=== PATIENT | male | born 1935 | race Caucasian/White ===

== ENCOUNTER 2017-05-12 11:56 | Emergency (ER) | payer MEDICARE ==
[~2017-05-12] VITALS: Ht 167.6 cm; Wt 97.7 kg
[~2017-05-12 11:56] MED LIST: ASPIRIN 32325 MG/TAB PO; CELEXA 20MG20 MG/TAB PO; FISH OIL1000 MG PO; IMDUR 30MG30 MG/TAB PO; LANOXIN0.25 MG PO; LOPRESSOR50 MG PO; PLAVIX 75MG TAB75 MG PO; PRILOSEC 20MG20 MG PO; PROTONIX 40MG T40 MG PO; VITAMIN D1000 IU PO; VYTORIN 10 MG-81 TAB PO
[2017-05-12 11:58] VITALS: TEMP 97.8
[2017-05-12] MEDS ORDERED: ZETIA 10MG TAB10 MG PO (12:03)
[2017-05-12] MEDS ORDERED: LIPITOR 80MG80 MG PO (12:03)
[2017-05-12] MEDS ORDERED: NORCO 325 MG-51 TAB PO (12:27)
[2017-05-12 13:17] VITALS: BP 118/72; PULSE 75
== END 2017-05-12 13:25 | disposition home or self-care (01) ==
LOC: COL.ER 11:56
DX: M54.5 Low back pain (principal); I10 Essential (primary) hypertension; I25.10 Atherosclerotic heart disease of native coronary artery without angina pectoris; E78.5 Hyperlipidemia, unspecified; Z95.1 Presence of aortocoronary bypass graft; Z95.5 Presence of coronary angioplasty implant and graft; Z79.82 Long term (current) use of aspirin; Z79.02 Long term (current) use of antithrombotics/antiplatelets
CPT/HCPCS: J2270; J2550

== ENCOUNTER → 2018-08-16 | Outpatient (CLI) | payer MEDICARE ==
[~2018-08-16] MED LIST changes: +LIPITOR 80MG80 MG PO; +NORCO 325 MG-51 TAB PO; +ZETIA 10MG TAB10 MG PO
== END ==
LOC: COL.RAD 13:26
DX: I71.9 Aortic aneurysm of unspecified site, without rupture (principal); J92.9 Pleural plaque without asbestos; R16.0 Hepatomegaly, not elsewhere classified

== ENCOUNTER → 2018-08-21 | Outpatient (CLI) | payer MEDICARE | LOC: COL.RAD 07:01 | DX: I71.4 Abdominal aortic aneurysm, without rupture (principal); J92.9 Pleural plaque without asbestos; R16.0 Hepatomegaly, not elsewhere classified | CPT/HCPCS: Q9967 ==

== ENCOUNTER → 2018-11-17 | Outpatient (CLI) | payer MEDICARE | LOC: COL.RAD 10:04 | DX: K63.89 Other specified diseases of intestine (principal); D64.89 Other specified anemias; N32.1 Vesicointestinal fistula; K76.9 Liver disease, unspecified | CPT/HCPCS: Q9967 ==

== ENCOUNTER 2018-11-24 07:00 | Inpatient (IN) | payer MEDICARE ==
[~2018-11-24] VITALS: Ht 167.6 cm; Wt 82.7 kg
[~2018-11-24 07:00] MED LIST changes: +FLAGYL500 MG PO; +LEVAQUIN 750MG750 M1 PO; +LOPRESSOR 550 MG/TAB PO; -LOPRESSOR50 MG PO
[2018-11-24 07:52] LABS: BASO % 0.4 % (0.0-2.0); EOS # 0.2 (0.0-0.7); EOS % 2.8 % (0-4.0); GRAN # 5.5 (1.4-6.5); GRAN % 70.7 % (42.2-75.2); HEMOGLOBIN 11.3 g/dl (13.5-18.0); LYMPH # 1.6 (1.2-3.4); LYMPH % 20.3 % (20.0-51.0); MEAN CELL VOLUME 89 fl (80.0-100.0); MEAN CORPUSCULAR HEMOGLOBIN 29 pg (27.0-31.0); MEAN CORPUSCULAR HGB CONC 33 g/dl (33.0-37.0); MEAN PLATELET VOLUME 9.8 fl (7.4-10.4); MONO # 0.4 (0.1-0.6); MONO % 5.4 % (1.7-9.3); PLATELET COUNT 287 K/mm3 (130-400); RED BLOOD COUNT 3.86 M/mm3 (4.20-5.60)
[2018-11-24 07:57] LABS: HEMATOCRIT 34.3 % (42.0-52.0)
[2018-11-24 07:58] LABS: INR 1.2 (0.8-3.0); PROTHROMBIN TIME 14.6 SECONDS (9.7-12.8)
[2018-11-24 08:05] LABS: ALANINE AMINOTRANSFERASE < 6 U/L (21-72); ALBUMIN 3.2 gm/dL (3.5-5.0); ALKALINE PHOSPHATASE 125 U/L (50-136); ANION GAP 12 mmol/L (7-16); AST,SGOT 24 U/L (15-37); BILIRUBIN,TOTAL 0.6 mg/dL (0.0-1.0); BLOOD UREA NITROGEN 10 mg/dL (9-20); C-REACTIVE PROTEIN 3.2 mg/dL (0.0-0.9); CALCIUM 8.7 mg/dL (8.4-10.2); CARBON DIOXIDE 24 mmol/L (22-30); CHLORIDE 107 mmol/L (98-107); CREATININE, serum 0.84 (0.66-1.25); GLUCOSE 123 mg/dL (74-106); LIPASE 102 U/L (23-300); SODIUM 142 mmol/L (137-145); TOTAL PROTEIN 7.8 gm/dL (6.4-8.2)
[2018-11-24 08:16] LABS: TROPONIN-I < 0.012 ng/mL (0.000-0.035)
[2018-11-24 09:38] LABS: COLLECTION METHOD CLEAN CATCH
[2018-11-24 09:46] LABS: PH 6 (5-8); SQUAMOUS EPITHELIAL None Seen /hpf; URINE APPEARANCE Hazy; URINE BACTERIA None Seen /hpf; URINE BILIRUBIN Negative (NEGATIVE); URINE BLOOD 2+ (NEGATIVE); URINE COLOR Yellow; URINE GLUCOSE Negative (NEGATIVE); URINE KETONE Trace (NEGATIVE); URINE LEUKOCYTE ESTERASE 3+ (NEGATIVE); URINE NITRATE Negative (NEGATIVE); URINE PROTEIN(semi-quant) 1+ (NEGATIVE); URINE UROBILINOGEN Negative (NEGATIVE)
[2018-11-24 12:30] VITALS: BP 170/92; PULSE 76; TEMP 97.6
--- NOTE | 2018-11-24 12:30 | NUR ---
Received pt to floor, oriented to room, aid in room to do initial assessment.
--- NOTE | 2018-11-24 13:28 | NUR ---
Pt sitting in bed, Joan ROBOTICS SOFTWARE ENGINEER just in to see him. Pt is alert and oriented x4. Denies any pain at this time. Complains of passing out multiple times in last couple of days. Taught pt to use call light when he needs to get up. Completed my assessment. Completed med rec at this time. Pt breathing even and unlabored, no shortness of breath noted. Abdomen is soft and bowel sounds audible. NO edema noted. Pt denies any needs. Call light in reach.
--- NOTE | 2018-11-24 13:32 | NUR ---
Completed orthostatic blood pressure. Lying down 160/102 hr 78. 98 on RA. Sitting down bp 158/100 hr 89, 97 RA. Standing up bp 152/94 hr 113, 97 on RA.
[2018-11-24 13:41] VITALS: BP 160/102; PULSE 78
[2018-11-24 13:42] VITALS: BP 152/94; BP 158/100; PULSE 113; PULSE 89
[2018-11-24 15:04] LABS: MAGNESIUM 1.5 mg/dL (1.6-2.3)
[2018-11-24 15:22] LABS: TROPONIN-I < 0.012 ng/mL (0.000-0.035)
--- NOTE | 2018-11-24 16:51 | NUR ---
Pt lying in bed, denies any pain or needs at this time. Pt is getting replacement potassium naty pratt, taught pt about medications, denies any questions at this time.
[2018-11-24 17:27] VITALS: BP 147/92; PULSE 85; TEMP 98
--- NOTE | 2018-11-24 18:59 | NUR ---
Last dose of potassium given and new potassium lab ordered. Pt lying in bed, finshed dinner, denies any pain. Call light in reach.
--- NOTE | 2018-11-24 19:18 | NUR ---
Report given to Meagan LEE. Pt lying in bed, eyes closed breathing even and unlabored.
[2018-11-24 19:30] VITALS: BP 142/89; PULSE 98; TEMP 97.9
--- NOTE | 2018-11-24 20:41 | NUR ---
REPORT RECEIVED FROM JESUS HUGO. PT SLEEPING SOUNDLY IN BED. CALL LIGHT IN REACH.
[2018-11-24 20:51] LABS: POTASSIUM 3.9 mmol/L (3.4-5.0)
[2018-11-24 21:12] LABS: TROPONIN-I < 0.012 ng/mL (0.000-0.035)
--- NOTE | 2018-11-24 21:55 | NUR ---
Pt resting in bed comfortably and denied pain. Pt alert and oriented. Call light in reach.
--- NOTE | 2018-11-24 22:43 | NUR ---
VISIT ATTEMPTED AND PT SLEEPING SOUNDLY IN BED. CALL LIGHT IN REACH.
[2018-11-24 23:27] VITALS: BP 136/85; PULSE 70; TEMP 98.1
--- NOTE | 2018-11-25 00:38 | NUR ---
VISIT ATTEMPTED AND PT SLEEPING SOUNDLY IN BED. CALL LIGHT IN REACH.
--- NOTE | 2018-11-25 02:48 | NUR ---
Pt sleeping soundly in bed. Call light in reach.
[2018-11-25 04:10] VITALS: BP 145/77; PULSE 82; TEMP 98.6
--- NOTE | 2018-11-25 06:52 | NUR ---
Report given to JESUS Pryor. Pt resting in bed comfortably w/ no concern. Call light in reach.
--- NOTE | 2018-11-25 07:00 | NUR ---
Report received from JESUS Rhodes. PT in bed resting with c/o back pain, will call hospitalist to get an order and continue to monitor.
[2018-11-25 07:20] LABS: BASO % 0.5 % (0.0-2.0); EOS # 0.2 (0.0-0.7); EOS % 3.6 % (0-4.0); GRAN # 4.2 (1.4-6.5); GRAN % 72.4 % (42.2-75.2); LYMPH # 0.9 (1.2-3.4); LYMPH % 15.7 % (20.0-51.0); MEAN CELL VOLUME 90 fl (80.0-100.0); MEAN CORPUSCULAR HGB CONC 32 g/dl (33.0-37.0); MEAN PLATELET VOLUME 9.6 fl (7.4-10.4); MONO # 0.4 (0.1-0.6); MONO % 7.6 % (1.7-9.3); PLATELET COUNT 221 K/mm3 (130-400); RED BLOOD COUNT 3.42 M/mm3 (4.20-5.60); REDCELL DISTRIBUTION WIDTH-CV 17.2 % (11.5-14.5)
[2018-11-25 07:25] LABS: HEMATOCRIT 30.7 % (42.0-52.0); HEMOGLOBIN 9.8 g/dl (13.5-18.0); MEAN CORPUSCULAR HEMOGLOBIN 29 pg (27.0-31.0)
[2018-11-25 07:26] LABS: CREATININE, serum 0.7 (0.66-1.25); MAGNESIUM 1.7 mg/dL (1.6-2.3); POTASSIUM 3.6 mmol/L (3.4-5.0)
[2018-11-25 08:56] VITALS: BP 148/99
--- NOTE | 2018-11-25 08:58 | NUR ---
Assessment charted. PRN pain meds given for back pain at 5/10 that is chronic problem for patient. IVF to RFA. Denies other needs. Will continue to monitor.
--- NOTE | 2018-11-25 09:23 | NUR ---
ODALIS met with the patient to discuss discharge plan. The patient lives outside of [place] with his friend, Jennyfer. He reports independence with ADLs and does not have any DME. The patient's PCP is Dr. Joesph Gutiérrez and he receives his medications at the [facility]. He reports no difficulties obtaining his meds. The patient does not have advanced directives and he was not interested in completing them at this time. He states that his person to contact is Jennyfer. The patient plans to return home with his friend upon discharge. No additional needs at this time.
[2018-11-25 10:58] VITALS: BP 123/74; PULSE 76; TEMP 97.7
--- NOTE | 2018-11-25 11:42 | NUR ---
Traffic Recorder offered to pray but nothing needed at this time.
[2018-11-25 16:30] VITALS: BP 157/82; PULSE 71; TEMP 98.1
--- NOTE | 2018-11-25 18:37 | NUR ---
pt doing well. Educational info provided regarding sotalol. Pt appreciative of info. Up to bathroom often today. Denies needs. Will give bedside shift report to nightshift who will resume care.
--- NOTE | 2018-11-25 20:30 | NUR ---
Initial shift assessment done- denies pain, Tele on, denies offer for a snack tonight- , wants a warm blanket and some sleep tonight- pleasant, Up to bathroom with standby assist- steady on feet. VSS. First dose of Sotalol tonight.
[2018-11-25 21:58] VITALS: BP 157/90; PULSE 87; TEMP 98.1
[2018-11-26 00:33] VITALS: BP 127/60; PULSE 114; TEMP 98.6
[2018-11-26 03:34] VITALS: BP 136/96; BP 138/93; PULSE 62; TEMP 97.9
--- NOTE | 2018-11-26 04:41 | NUR ---
Has been sleeping well tonight- Up to bathroom with standby assist-VSS, no chest pain/SOB
[2018-11-26 07:20] LABS: BASO # 0.1 (0.0-0.2); BASO % 0.7 % (0.0-2.0); EOS # 0.2 (0.0-0.7); EOS % 3.6 % (0-4.0); GRAN # 4.7 (1.4-6.5); GRAN % 70.3 % (42.2-75.2); HEMOGLOBIN 10.8 g/dl (13.5-18.0); LYMPH # 1.2 (1.2-3.4); LYMPH % 17.5 % (20.0-51.0); MEAN CELL VOLUME 90 fl (80.0-100.0); MEAN CORPUSCULAR HEMOGLOBIN 29 pg (27.0-31.0); MEAN CORPUSCULAR HGB CONC 32 g/dl (33.0-37.0); MEAN PLATELET VOLUME 10.5 fl (7.4-10.4); MONO # 0.5 (0.1-0.6); MONO % 7.2 % (1.7-9.3); PLATELET COUNT 213 K/mm3 (130-400); RED BLOOD COUNT 3.78 M/mm3 (4.20-5.60); REDCELL DISTRIBUTION WIDTH-CV 17.5 % (11.5-14.5)
[2018-11-26 07:21] VITALS: BP 154/81; PULSE 67; TEMP 97.9
[2018-11-26 07:24] LABS: HEMATOCRIT 34.1 % (42.0-52.0)
[2018-11-26 07:55] LABS: CALCIUM 8.2 mg/dL (8.4-10.2); CREATININE, serum 0.67 (0.66-1.25); MAGNESIUM 1.8 mg/dL (1.6-2.3); POTASSIUM 3.9 mmol/L (3.4-5.0)
[2018-11-26 11:31] VITALS: BP 122/68; PULSE 66; TEMP 97.4
[2018-11-26 16:11] VITALS: BP 147/85; PULSE 70; TEMP 98
[2018-11-26 19:24] VITALS: BP 140/85; PULSE 70; TEMP 98
--- NOTE | 2018-11-26 20:20 | NUR ---
Shift assessment complete. Pt resting in bed, awake, a&o, cooperative c cares. Pt denies pain or other c/o. INT patent. Pt denies needs. Call light in reach. Will monitor.
[2018-11-27 01:00] VITALS: BP 93/53; PULSE 70; TEMP 98.7
[2018-11-27 04:38] VITALS: BP 117/59; PULSE 49; TEMP 97.8
[2018-11-27 07:04] LABS: BASO % 0.6 % (0.0-2.0); EOS # 0.2 (0.0-0.7); EOS % 2.1 % (0-4.0); GRAN # 5.2 (1.4-6.5); GRAN % 72.8 % (42.2-75.2); LYMPH # 1.2 (1.2-3.4); LYMPH % 16.8 % (20.0-51.0); MEAN CELL VOLUME 90 fl (80.0-100.0); MEAN CORPUSCULAR HEMOGLOBIN 29 pg (27.0-31.0); MEAN CORPUSCULAR HGB CONC 33 g/dl (33.0-37.0); MONO # 0.5 (0.1-0.6); MONO % 7.3 % (1.7-9.3); PLATELET COUNT 227 K/mm3 (130-400); RED BLOOD COUNT 3.42 M/mm3 (4.20-5.60); REDCELL DISTRIBUTION WIDTH-CV 17.4 % (11.5-14.5)
[2018-11-27 07:06] LABS: HEMATOCRIT 30.8 % (42.0-52.0)
[2018-11-27 07:17] LABS: CALCIUM 8.3 mg/dL (8.4-10.2); CREATININE, serum 0.72 (0.66-1.25); POTASSIUM 3.9 mmol/L (3.4-5.0)
[2018-11-27 07:20] VITALS: BP 119/81; PULSE 65; TEMP 97.8
--- NOTE | 2018-11-27 09:14 | NUR ---
ASSESSMENT COMPLETED, PATIENT ORIENTED AND ALERT, VITAL SIGNS STABLE, TELE SINUS, DAY 3 OF SOFARHEEN ARTHURASSSIUM WAS 3.9 PROTOCOL REPLACEMENT PROTOCOL IMPLEMENTED, POSSIBLE BIOPSY LATER TODAY, CASE MANAGEMENT INVOLVED, HEART RRR, DISTAL PULSES PALPABLE, LUNGS CTA, NO RESPIRATORY DIFFICULTY, SITTING AT EDGE OF BED, NPO FOR POSSIBLE PROCEDURE, PATIENT DENIES ANY OTHER NEEDS AT THIS TIME.
--- NOTE | 2018-11-27 10:14 | NUR ---
PT NEEDS TO BE AN OUT PT FOR THE LIVER BX ACCORDING TO CASE MANAGEMENT - REX. PROCEDURE WAS CANCELLED AFTER TALKING TO JESUS TRUONG. WILL VISIT WITH THE PATIENT ABOUT RESCHEDULING PROCEDURE.
[2018-11-27 11:05] VITALS: BP 123/67; PULSE 59; TEMP 97.6
[2018-11-27] MEDS ORDERED: BETAPACE 80MG80 MG PO (11:23)
[2018-11-27] MEDS ORDERED: ZESTRIL 10MG10 MG PO ×2 (11:24)
--- NOTE | 2018-11-27 15:03 | NUR ---
The patient is in need of transport back home. The patient states that he can afford a taxi. SW called him a taxi and they are to pick him up and transport him back home today, 11/27. No additional needs at this time.
--- NOTE | 2018-11-27 15:38 | NUR ---
Discharge orders discussed with the patient, instructed him to follow up with Cardiology and PCP as we have scheduled, instructed to take Sotalol as prescribed, instructed to stop Metoprolol as we are replacing with the Sotalol, script sent to pharmacy for him, IV and tele removed,he is leaving in a Cab and UNDERGROUND FOREMAN escorted him out
== END 2018-11-27 15:53 | disposition home or self-care (01) | DRG 690 ==
LOC: COL.ER 07:00 → MEDICAL 08:39
PROVIDERS: Emergency Medicine; Physician Assistant; ADMIT Hospitalist
DX: N39.0 Urinary tract infection, site not specified (principal); I48.91 Unspecified atrial fibrillation; R55 Syncope and collapse; D64.9 Anemia, unspecified; E87.6 Hypokalemia; I10 Essential (primary) hypertension; I25.10 Atherosclerotic heart disease of native coronary artery without angina pectoris; Z95.1 Presence of aortocoronary bypass graft; Z95.5 Presence of coronary angioplasty implant and graft; E78.5 Hyperlipidemia, unspecified; Z66 Do not resuscitate; K76.9 Liver disease, unspecified
CPT/HCPCS: 99231-AI; 99239; A4216; G0378; J0696; J1650; J3475; J7030

== ENCOUNTER → 2018-12-08 | Outpatient (CLI) | payer MEDICARE ==
[2018-12-08] VITALS (14 sets, daily range): BP systolic 118–152; BP diastolic 74–92; PULSE 60–79
[~2018-12-08] VITALS: Ht 167.6 cm; Wt 77.2 kg
[~2018-12-08] MED LIST changes: +BETAPACE 80MG80 MG PO; +ZESTRIL 10MG10 MG PO; +ZOCOR 10MG10 MG PO
--- NOTE | 2018-12-08 10:55 | NUR ---
PT POSITIONED ON THE TABLE. MONITORING EQUIPMENT PLACED ON PT. REMINDED PT TO LET US KNOW IF HE HAS DISCOMFORT. TIME OUT DONE. IMAGES SENT TO
--- NOTE | 2018-12-08 11:10 | NUR ---
PROCEDURE COMPLETED. SITE IS CDI TO MID ABDOMEN. PT DENIES PAIN OR NEEDS. MONITORING EQUIPMENT REMOVED. ASSISTED TO TRANSFER TO WHEELCHAIR. TAKEN TO RAD HOLDING. MONITORING EQUIPMENT PLACED. SPECIMENS TAKEN TO LAB. FRIEND BROUGHT INTO ROOM.
== END ==
LOC: COL.RAD 09:19
DX: C22.7 Other specified carcinomas of liver (principal); C22.0 Liver cell carcinoma

== ENCOUNTER 2019-02-02 10:50 | Inpatient (IN) | payer MEDICARE ==
[~2019-02-02] VITALS: Ht 167.6 cm; Wt 69.2 kg
[2019-02-02 11:47] LABS: MEAN CELL VOLUME 90 fl (80.0-100.0); MEAN CORPUSCULAR HGB CONC 33 g/dl (33.0-37.0); MEAN PLATELET VOLUME 9.5 fl (7.4-10.4); PLATELET COUNT 265 K/mm3 (130-400); RED BLOOD COUNT 3.04 M/mm3 (4.20-5.60)
[2019-02-02 11:53] LABS: HEMATOCRIT 27.4 % (42.0-52.0); HEMOGLOBIN 8.9 g/dl (13.5-18.0); MEAN CORPUSCULAR HEMOGLOBIN 29 pg (27.0-31.0)
[2019-02-02 12:00] LABS: ALANINE AMINOTRANSFERASE < 6 U/L (21-72); ALBUMIN 2.8 gm/dL (3.5-5.0); ALKALINE PHOSPHATASE 144 U/L (50-136); ANION GAP 9 mmol/L (7-16); AST,SGOT 17 U/L (15-37); BILIRUBIN,TOTAL 0.6 mg/dL (0.0-1.0); BLOOD UREA NITROGEN 8 mg/dL (9-20); C-REACTIVE PROTEIN 7.8 mg/dL (0.0-0.9); CALCIUM 8.3 mg/dL (8.4-10.2); CARBON DIOXIDE 28 mmol/L (22-30); CHLORIDE 101 mmol/L (98-107); CREATININE, serum 0.48 (0.66-1.25); GLUCOSE 116 mg/dL (74-106); SODIUM 138 mmol/L (137-145); TOTAL PROTEIN 6.5 gm/dL (6.4-8.2)
[2019-02-02 12:07] LABS: POTASSIUM 2.8 mmol/L (3.4-5.0)
[2019-02-02 12:15] LABS: BAND 2 % (0-10); LYMPHOCYTE 9 % (20.0-51.0); METAMYELOCYTE 3 % (0-0); NEUTROPHILS 82 % (42.0-75.2); OVALOCYTES 1+; PLATELET ESTIMATE NORMAL (NORMAL)
[2019-02-02 12:16] LABS: ANISOCYTOSIS 1+; HYPOCHROMIA 1+; MICROCYTOSIS 1+
[2019-02-02 12:30] LABS: COLLECTION METHOD CLEAN CATCH
[2019-02-02 12:45] LABS: MUCOUS Present /lpf; PH 6 (5-8); SQUAMOUS EPITHELIAL 0-2 /hpf; URINE APPEARANCE Cloudy; URINE BACTERIA Rare /hpf; URINE BILIRUBIN Negative (NEGATIVE); URINE BLOOD 2+ (NEGATIVE); URINE COLOR Yellow; URINE GLUCOSE Negative (NEGATIVE); URINE KETONE 1+ (NEGATIVE); URINE LEUKOCYTE ESTERASE 3+ (NEGATIVE); URINE NITRATE Negative (NEGATIVE); URINE PROTEIN(semi-quant) 1+ (NEGATIVE); URINE RBC >50 /hpf; URINE UROBILINOGEN Negative (NEGATIVE)
[2019-02-02 17:25] VITALS: BP 151/78; PULSE 79; TEMP 98.1
--- NOTE | 2019-02-02 18:15 | NUR ---
Patient arrived to room at 1600 via stretcher. Was assisted to bed, is resting with head elevated. Denies having any pain. Urinal is available and is noted to have cloudy darker yellow urine, has a strong smell. Two consults were entered for patient and called to providers. Patient reports he is receiving chemo for colon cancer, received treatment about 2 weeks ago. Is alert and oriented, call light and personal items are within reach.
[2019-02-02 19:06] VITALS: BP 137/75; PULSE 85; TEMP 98.4
--- NOTE | 2019-02-02 20:30 | NUR ---
Initial shift assessment done- denies pain/SOB, denies dizziness- alert/oriented, using urinal in bed, urine dark, cloudy- understands to call for assistance, IV fluids of NS at 125cc/hr to port in right chest-- no requests. Did talk to DR. Brock keller- order put in for H& H , and K+ labs in AM-
[2019-02-03] VITALS (7 sets, daily range): BP systolic 129–144; BP diastolic 65–86; PULSE 73–87; TEMP 97.5–98.9
--- NOTE | 2019-02-03 06:39 | NUR ---
Quiet night-- no requests, has been voiding small amounts every couple hours 100cc at a time- denies pain
[2019-02-03 07:42] LABS: HEMATOCRIT 24.7 % (42.0-52.0); HEMOGLOBIN 8.1 g/dl (13.5-18.0)
--- NOTE | 2019-02-03 11:27 | NUR ---
Patient was with the doctor and indisposed.
--- NOTE | 2019-02-03 16:26 | NUR ---
Plan: To return home with lady friend Estefania Mares [phone]. Assess: Patient reports that he resides alone but has cancer. Pateint reports that he is interested in home health or hospice care in home. Patient indicated that his PCP is Dr. Zavala. Patient reports he obtains RX from [facility] without issues. Patient uses walker mostly.Patient denies having a DPOA and declienes setting it up. Patient reports that he will need transportation home. Action: SW is waiting on PT/OT to evaluate. Patient is also making a choice on [facility] or [facility]. Educated patient about additonal resources. Will also provide taxi voucher. Will follow-up.
--- NOTE | 2019-02-03 18:26 | NUR ---
PT HAD UNEVENTFUL DAY. NO ISSUES OR CONCERNS VOICED. PLEASANT COOPERATIVE WITH CARES. RECIEVING IV FLUIDS WITHOUT ISSUE AND ROCEPHEN ORDERED.
--- NOTE | 2019-02-03 20:15 | NUR ---
Shift assessment complete. Pt resting in bed, awake, a&o, cooperative c cares. Pt denies pain or other c/o at this time. Portacath noted to R chest, patent c good blood return. Pt denies needs at this time. Call light in reach, bed alarm on. Will continue to monitor.
[2019-02-04 03:22] VITALS: BP 142/89; PULSE 85; TEMP 97.7
[2019-02-04 08:57] VITALS: BP 136/76; PULSE 85; TEMP 97.7
[2019-02-04 10:10] LABS: HEMATOCRIT 26.3 % (42.0-52.0); HEMOGLOBIN 8.5 g/dl (13.5-18.0)
--- NOTE | 2019-02-04 12:37 | NUR ---
ODALIS obtianed choice for homehealth. [facility] ODALIS faxed Referral to [facility] at [phone]. Called intake line was placed on hold to valdemar.
[2019-02-04 13:04] VITALS: BP 121/78; PULSE 94; TEMP 97.6
[2019-02-04 16:27] VITALS: BP 144/82; PULSE 106; TEMP 98.1
--- NOTE | 2019-02-04 17:07 | NUR ---
PT HAD UNEVENTFUL DAY. PLEASENT AND COOPERATIVE WITH CARES. HASNT REQUESTED NEED FOR MECLIZINE. NO ISSUES OR CONCERNS VOICED THIS SHIFT.
[2019-02-04 19:52] VITALS: BP 141/82; PULSE 93; TEMP 98.3
--- NOTE | 2019-02-04 19:55 | NUR ---
Shift assessment complete. Pt resting in bed, awake, a&o, cooperative c cares. Pt denies pain or any other c/o. Portacath noted to R chest, patent c good blood return. Pt denies needs at this time. Call light in reach, bed alarm on. Will continue to monitor.
[2019-02-05] VITALS (7 sets, daily range): BP systolic 114–155; BP diastolic 67–88; PULSE 89–107; TEMP 97.4–98.6
--- NOTE | 2019-02-05 04:36 | NUR ---
Pt resting in bed, condition unchanged. Pt has rested well this shift c very few needs. Denies needs at this time. Call light in reach.
--- NOTE | 2019-02-05 07:19 | NUR ---
Patient is resting quietly with eyes closed positioned on back. Respirations are even and nonlabored. Call light and personal items are within reach.
[2019-02-05 09:03] LABS: HEMATOCRIT 25.8 % (42.0-52.0); HEMOGLOBIN 8.4 g/dl (13.5-18.0)
--- NOTE | 2019-02-05 14:32 | NUR ---
ODALIS contacted Jose M, from [facility], to follow up on referral. Jose M reports that they did not receive the referral and that they are doing more palliative home health. ODALIS then met with the patient to follow up with and update. The patient asked ODALIS what the difference is between home health and hospice. ODALIS explained. The patient reports that he is more interested in home health. ODALIS presented the patient with [employer]'s list of home health agencies that serve [place]. The patient chose [facility]. The patient was also interested in their transportation services. ODALIS contacted and faxed a referral to Guillermo at [facility]. Guillermo reports that they are able to accept the patient for services. Guillermo also reports that their transportation each way to somewhere here in [place] is $7.50. ODALIS informed the patient. SW to continue to follow.
--- NOTE | 2019-02-05 18:25 | NUR ---
Patient is sitting up in bed eating supper. Dr. Gutiérrez just in to see patient. Did visit with him regarding new labs. I did ask about IV fluid rate and received verbal order to decrease rate to 75 ml/hr. Denies pain. Personal items and call light are within reach.
--- NOTE | 2019-02-05 19:20 | NUR ---
Shift assessment complete. Pt resting in bed, awake, a&o, cooperative c cares. Pt denies pain or any other c/o. Portacath noted, patent c good blood return. Pt denies needs at this time. Call light in reach, bed alarm on. Will continue to monitor.
[2019-02-06] VITALS (7 sets, daily range): BP systolic 101–141; BP diastolic 71–90; PULSE 48–99; TEMP 97.4–98.7
[2019-02-06 06:13] LABS: HEMATOCRIT 25.9 % (42.0-52.0); HEMOGLOBIN 8.2 g/dl (13.5-18.0)
[2019-02-06 06:31] LABS: IRON,SERUM 36 ug/dL (35-150)
[2019-02-06 06:40] LABS: TOTAL IRON BINDING CAPACITY 179 ug/dL (261-462)
[2019-02-06 09:10] LABS: HEMATOCRIT 25.6 % (42.0-52.0); HEMOGLOBIN 8.2 g/dl (13.5-18.0)
--- NOTE | 2019-02-06 09:37 | NUR ---
Patient is awake and alert in bed, denies having any pain. States he would like to get up and walk. Blood drawn from central line for H&H. Offered assistance with ordering breakfast and patient stated he may wait until lunch to eat, states he sometimes does not eat breakfast. Respirations are even and nonlabored. Call light and personal items are within reach.
--- NOTE | 2019-02-06 11:14 | NUR ---
Follow up visit; Patient thanked Fuel Pilot Engineer for looking in on him and offering god's blessings.
--- NOTE | 2019-02-06 18:52 | NUR ---
Patient is resting in bed, no needs verbalized. Call light is within reach.
[2019-02-07] VITALS (14 sets, daily range): BP systolic 108–144; BP diastolic 63–93; PULSE 81–106; TEMP 97.4–98.1
--- NOTE | 2019-02-07 01:45 | NUR ---
Pt tolerating first unit blood with no s/s of reaction. Uses urinal frequently. Rest in bed with head slightly elevated. Call light within reach. Will continue to monitor.
--- NOTE | 2019-02-07 05:23 | NUR ---
Pt completed 2units Blood. Transfused with no adverse reactions. IV fluids of NS infusing thru port at 75mL/hr. No temp. Resting quietly in bed with head slightly elevated. Voids per urinal thru the night. Call light in reach. Will continue to monitor.
--- NOTE | 2019-02-07 08:20 | NUR ---
Refused breakfast this morning, states he normally does not eat breakfast. Last potassium 2.9 on 02/03/19. PO potassium ordered and given. Denies pain. Verbalized desire to be discharged to [facility]. Reported having a BM just this morning, not observed, patient states it was normal. Continues to have NS infusing at 75 ml/hr to right chest port. Good blood return on port when flushed this AM. Patient reports he missed his Chemo on Tuesday, and believes the plan is to have it again next Tuesday if blood work is stable.
--- NOTE | 2019-02-07 16:20 | NUR ---
Patient encouraged to order food, offered to assist and patient declined. Took one Ensure so far today. Dr Gutiérrez called and update given. He will be in later tonight and again tomorrow and will probably discharge the patient tomorrow. IV fluids going at 75 ml/hr discontinued by telephone order and stopped. Patient has slept a lot today, easily aroused.
--- NOTE | 2019-02-07 16:38 | NUR ---
ODALIS met with the patient to review discharge plan and to follow up on Dr. Gutiérrez's progress note of SNF at [facility]. SW explained how SNF would be private pay, due to him actively receiving chemo. The patient verbalized understanding. The patient reports that he feels comfortable returning back home and pursuing [facility]. ODALIS will need to collaborate with Dr. Gutiérrez and will continue to follow.
[2019-02-08 03:52] VITALS: BP 122/81; PULSE 98; TEMP 97.7
--- NOTE | 2019-02-08 04:38 | NUR ---
Pt had an uneventful shift. Slept off and on. Request tylenol 500mg x1 before bed. Dr Gutiérrez in to see pt last evening. Plans to go home with home health today.
[2019-02-08 06:12] LABS: HEMATOCRIT 32.9 % (42.0-52.0); HEMOGLOBIN 10.6 g/dl (13.5-18.0)
[2019-02-08 06:20] LABS: CALCIUM 9.2 mg/dL (8.4-10.2); CREATININE, serum 0.52 (0.66-1.25); POTASSIUM 4.2 mmol/L (3.4-5.0)
[2019-02-08 07:40] VITALS: BP 116/74; PULSE 106; TEMP 97.6
[2019-02-08 08:30] VITALS: BP 112/65; PULSE 104; TEMP 97.6
--- NOTE | 2019-02-08 09:03 | NUR ---
I will be assisting primary nurse Eliane LEE with patient care between [id number], Priti LEE Student
--- NOTE | 2019-02-08 10:08 | NUR ---
Assessment completed. Patient resing in bed, drinking an Ensure. Pain level 0 Priti RN Student
[2019-02-08 12:27] VITALS: BP 111/70; PULSE 106; TEMP 97.9
--- NOTE | 2019-02-08 12:37 | NUR ---
Pt has student nurse helping care for pt today. This nurse completed assessment and charted. Meds administered by student nurse and instructor. No concerns voiced. pt denies pain at this time, denies SOB, dizziness, N/V. POC discussed with patient and Dr. Gutiérrez. Call light within reach.
[2019-02-08] MEDS ORDERED: LEVAQUIN 750MG750 M1 PO (12:44)
[2019-02-08] MEDS ORDERED: TYLENOL 500MG500 MG PO (12:45)
[2019-02-08] MEDS ORDERED: K-TAB20 PO (12:46)
--- NOTE | 2019-02-08 13:42 | NUR ---
Reported off to primary nurse Eliane LEE. Pain level 0. Bed in lowest position. Call light within reach. JESUS Marcos Student.
--- NOTE | 2019-02-08 13:44 | NUR ---
ODALIS collaborated with the patient's attending and PCP, Dr. Gutiérrez, on discharge plan. The patient plans to continue chemo and feels comfortable returning back home with girlfriend, Jennyfer, and home health. The patient is to discharge back home with his girlfriend today, 02/08, and home health services for jail/PT/OT through [facility]. ODALIS contacted and faxed the patient's orders to [place] at [facility]. The patient would like to utilize [facility] transportation services. ODALIS arranged transport from [facility] at 1430. ODALIS presented and explained the IM form to the patient. The patient verbalized understanding, signed, and he was provided a copy. No additional needs at this time.
--- NOTE | 2019-02-08 13:53 | NUR ---
Primary nurse was assisted with [phone] patient care by [employer] student Priti Brown and [employer] instructor Dora Tristan RN-.
--- NOTE | 2019-02-08 14:40 | NUR ---
Pt discharge instructions discussed and reviewed with patient who verbalizes understanding. Pt rt chest portacath deaccessed with no complications, flushed with heparin prior. Pt assisted in getting ready and to wheelchair. Pt escorted out via WC by [facility] staff.
== END 2019-02-08 14:40 | disposition home or self-care (01) | DRG 374 ==
LOC: COL.ER 10:50 → MEDICAL 13:36
PROVIDERS: Family Medicine; ADMIT Emergency Medicine
DX: C18.7 Malignant neoplasm of sigmoid colon (principal); E43 Unspecified severe protein-calorie malnutrition; N39.0 Urinary tract infection, site not specified; C78.7 Secondary malignant neoplasm of liver and intrahepatic bile duct; N32.1 Vesicointestinal fistula; D64.81 Anemia due to antineoplastic chemotherapy; K21.9 Gastro-esophageal reflux disease without esophagitis; E78.5 Hyperlipidemia, unspecified; I25.10 Atherosclerotic heart disease of native coronary artery without angina pectoris; T45.1X5A Adverse effect of antineoplastic and immunosuppressive drugs, initial encounter; Z92.21 Personal history of antineoplastic chemotherapy; Z95.5 Presence of coronary angioplasty implant and graft; Z87.01 Personal history of pneumonia (recurrent); Z68.24 Body mass index [BMI] 24.0-24.9, adult
CPT/HCPCS: A4216; J0696; J1644; J7030; P9016

== ENCOUNTER 2019-03-09 08:20 | Emergency (ER) | payer MEDICARE ==
[~2019-03-09] VITALS: Ht 167.6 cm; Wt 62.3 kg
[~2019-03-09 08:20] MED LIST changes: +K-TAB20 PO; +TYLENOL 500MG500 MG PO
[2019-03-09 08:25] VITALS: TEMP 97.6
[2019-03-09 09:04] LABS: BASO # 0.1 (0.0-0.2); BASO % 0.6 % (0.0-2.0); EOS % 0.2 % (0-4.0); GRAN # 10.6 (1.4-6.5); GRAN % 86.9 % (42.2-75.2); HEMOGLOBIN 10.6 g/dl (13.5-18.0); LYMPH # 0.7 (1.2-3.4); LYMPH % 5.8 % (20.0-51.0); MEAN CELL VOLUME 95 fl (80.0-100.0); MEAN CORPUSCULAR HEMOGLOBIN 30 pg (27.0-31.0); MEAN CORPUSCULAR HGB CONC 32 g/dl (33.0-37.0); MEAN PLATELET VOLUME 9.2 fl (7.4-10.4); MONO # 0.7 (0.1-0.6); MONO % 6.1 % (1.7-9.3); PLATELET COUNT 271 K/mm3 (130-400); REDCELL DISTRIBUTION WIDTH-CV 17.5 % (11.5-14.5)
[2019-03-09 09:13] LABS: HEMATOCRIT 33.1 % (42.0-52.0)
[2019-03-09 09:17] LABS: ALBUMIN 3.3 gm/dL (3.5-5.0); BILIRUBIN,TOTAL 0.7 mg/dL (0.0-1.0); C-REACTIVE PROTEIN 6.2 mg/dL (0.0-0.9); CALCIUM 9.7 mg/dL (8.4-10.2); CREATININE, serum 0.62 (0.66-1.25); TOTAL PROTEIN 7.3 gm/dL (6.4-8.2)
[2019-03-09] MEDS ORDERED: NORCO 325 MG-51 TAB PO (12:39)
[2019-03-09 12:43] VITALS: BP 140/95; PULSE 91
== END 2019-03-09 13:53 | disposition home or self-care (01) ==
LOC: COL.ER 08:20
PROVIDERS: Family Medicine
DX: N39.0 Urinary tract infection, site not specified (principal); C18.9 Malignant neoplasm of colon, unspecified; Z95.5 Presence of coronary angioplasty implant and graft
CPT/HCPCS: J1644; J2405; J7030